=== PATIENT | male | born 1945 | race Caucasian/White ===

== ENCOUNTER 2018-09-09 19:24 | Emergency (ER) | payer MEDICARE, OTHER ==
[~2018-09-09] VITALS: Wt 86.4 kg
[2018-09-09] MEDS ORDERED: ACETAMINOPHEN 500 MG TAB PO STA (21:05)
--- NOTE | 2018-09-09 21:08 | ERD ---
ER Documentation Chief Complaint Chief Complaint COUGH, CHILLS X'S 1 DAY HPI This is a 73-year-old male with a history of diabetes who presents with 2 days of fever, cough and congestion. He denies abdominal pain, denies nausea or v omiting, he has not been on recent antibiotics, he has no recent hospitalizations. No recent sick contacts that he knows of. He has had no shortness of breath, he has otherwise been doing well. He denies urinary symptoms. ROS All systems reviewed and are negative except as per history of present illness. Allergies Allergies: Coded Allergies: No Known Allergy (Unverified , 09/09/18) Physical Exam Vitals Vital Signs Date Temp Pulse Resp B/P (MAP) Pulse Ox O2 O2 Flow FiO2 Time Delivery Rate 09/09/18 100.2 21:48 09/09/18 101.5 74 18 136/64 96 19:29 (88) Physical Exam Const: Well-appearing, well-developed, well-nourished Head: Atraumatic Eyes: Normal Conjunctiva ENT: Normal External Ears, Nose and Mouth. Neck: Full range of motion. No meningismus. Resp: Clear to auscultation bilaterally, there are trace rales noted at the right lower base, there is no wheezes, no rhonchi Cardio: Regular rate and rhythm, no murmurs Abd: Soft, non tender, non distended. Normal bowel sounds Skin: No petechiae or rashes Back: No midline or flank tenderness Ext: No cyanosis, or edema Neur: Awake and alert Psych: Normal Mood and Affect Result Diagram: 09/09/18212009/09/182120 Results 24 hrs Laboratory Tests Test 09/09/18 21:21 White Blood Count 8.1 10^3/ul Red Blood Count 4.62 10^6/ul Hemoglobin 14.6 g/dl Hematocrit 43.9 % Mean Corpuscular Volume 95.0 fl Mean Corpuscular Hemoglobin 31.6 pg Mean Corpuscular Hemoglobin Concent 33.3 g/dl Red Cell Distribution Width 13.1 % Platelet Count 119 10^3/UL Mean Platelet Volume 10.3 fl Immature Granulocytes % 0.500 % Neutrophils % 75.0 % Lymphocytes % 13.9 % Monocytes % 9.4 % Eosinophils % 1.0 % Basophils % 0.2 % Nucleated Red Blood Cells % 0.0 /100WBC Immature Granulocytes # 0.040 10^3/ul Neutrophils # 6.0 10^3/ul Lymphocytes # 1.1 10^3/ul Monocytes # 0.8 10^3/ul Eosinophils # 0.1 10^3/ul Basophils # 0.0 10^3/ul Nucleated Red Blood Cells # 0.0 10^3/ul Sodium Level 141 mmol/L Potassium Level 4.3 mmol/L Chloride Level 102 mmol/L Carbon Dioxide Level 31 mmol/L Anion Gap 8 Blood Urea Nitrogen 20 mg/dl Creatinine 1.01 mg/dl Est Glomerular Filtrat Rate mL/min mL/min Glucose Level 173 mg/dl Calcium Level 9.7 mg/dl Total Bilirubin 0.4 mg/dl Direct Bilirubin 0.00 mg/dl Indirect Bilirubin 0.4 mg/dl Aspartate Amino Transf (AST/SGOT) 24 IU/L Alanine Aminotransferase (ALT/SGPT) 34 IU/L Alkaline Phosphatase 47 IU/L Troponin I < 0.012 ng/ml B-Type Natriuretic Peptide 80 PG/ML Total Protein 7.8 g/dl Albumin 4.3 g/dl Globulin 3.50 g/dl Albumin/Globulin Ratio 1.22 Current Medications Medications Dose Sig/Autumn Start Time Status Last (Trade) Ordered Route PRN Stop Time Admin Dose Reason Admin 1,000 mg ONCE STAT 09/09/18 DC 09/09/18 Acetaminophen PO 21:05 21:48 (Tylenol 09/09/18 21:09 Tab) Ceftriaxone 50 ml @ ONCE ONCE 09/09/18 Sodium 100 mls/hr IVPB 22:30 09/09/18 22:59 Procedures/MDM 73-year-old male presents for evaluation of cough, congestion and fever noted here. Patient's vital signs are otherwise normal aside from the fever, he has no evidence of sepsis, severe sepsis or septic shock. I discussed findings with family, and shared decision-making was made to treat pneumonia as an outpatient, patient's curb 65 score is 1, given ceftriaxone in the ED, as well as doxycycline for outpatient follow-up, strict return precautions were given for worsening shortness of breath, uncontrolled fevers, inability to tolerate oral intake, or any other concerning symptoms. Blood cultures drawn prior to antibiotic administration. EKG: Rate/Rhythm: Normal Sinus Rhythm QRS, ST, T-waves: No changes consistent w/ acute ischemia Impression: No evidence of ischemia or arrhythmia Departure Diagnosis: Primary Impression: Pneumonia Pneumonia type: due to unspecified organism Laterality: unspecified laterality Lung location: unspecified part of lung Qualified Codes: J18.9 - Pneumonia, unspecified organism Condition: Stable NOELLE CEJA MD September 09, 2018 21:08
[2018-09-09] MEDS ORDERED: DOXY100T20 PO (22:28)
[2018-09-09] MEDS ORDERED: CEFTRIAXONE 1 GM/50 ML (PMX) 50 ML IVPB ONE (22:30)
[2018-09-09 23:07] VITALS: BP 110/57; PULSE 61; RESP 18
== END 2018-09-09 23:00 | disposition home or self-care (01) ==
LOC: E/R 19:24
DX: J18.9 Pneumonia, unspecified organism (principal); E11.9 Type 2 diabetes mellitus without complications; R06.02 Shortness of breath
CPT/HCPCS: 36415; 71045; 80053; 83880; 84484; 85025; 87040; 93005; 96365; 99285; J0696